=== PATIENT | female | born 1990 | race Caucasian/White ===

== ENCOUNTER 2021-12-21 14:07 | Emergency (ER) | payer OTHER ==
[2021-12-21 14:38] VITALS: BP 128/75; PULSE 99; TEMP 98.1; BMI 22.4
[2021-12-21] MEDS ORDERED: ACETAMINOPHEN 500 MG TABLET (FP) PO ONE (15:18)
[2021-12-21] MEDS ORDERED: ACETAMINOPHEN 500 MG TABLET (FP) ONE (15:19)
[2021-12-21] MEDS ORDERED: ONDANSETRON 4 MG TABLET PO ONE (15:21)
[2021-12-21] MEDS ORDERED: ONDANSETRON *ODT* 4 MG TABLET ONE (15:30)
== END 2021-12-21 17:02 | disposition home or self-care (01) ==
LOC: JERFT 14:07
DX: S00.93XA Contusion of unspecified part of head, initial encounter (principal); W22.8XXA Striking against or struck by other objects, initial encounter
CPT/HCPCS: 99283-25